=== PATIENT | male | born 1960 | race Caucasian/White ===

== ENCOUNTER 2018-10-13 00:48 | Emergency (ER) | payer OTHER ==
[~2018-10-13] VITALS: Wt 63.8 kg
[2018-10-13] MEDS ORDERED: LIDOCAINE 2% JEL.PF.APP 5 ML UROJET SYRINGE MM ONE (01:00)
[2018-10-13] MEDS ORDERED: SOD CHLORIDE 0.9% 500 ML IV STA (02:44)
[2018-10-13] MEDS ORDERED: ONDANSETRON 4 MG INJ IV STA (02:44)
[2018-10-13] MEDS ORDERED: morphine 4 MG/ML VIAL IV STA (02:44)
--- NOTE | 2018-10-13 03:13 | ERD ---
ER Documentation Chief Complaint Chief Complaint URINARY RETENTION X'S 12 HOURS HPI This is a 58-year-old gentleman with prior history of diverticulitis status post surgical repair who presents to the emergency room complaining of urinary retention. The patient states that he has a history of this. He does have history of BPH but he also takes [place] for pain. He describes some constipation and urinary retention. No low back pain or motor weakness to the lower extremities. Patient notes suprapubic abdominal discomfort that is 7 out of 10, cramping with fullness. He has not been able to urinate in the past 12 hours. ROS All systems reviewed and are negative except as per history of present illness. Medications Home Meds Active Scripts Docusate Sodium* (Colace*) 100 Mg Capsule, 100 MG PO TID PRN for CONSTIPATION, #30 CAP Prov:YANY SULLIVAN MD 10/13/18 Cephalexin* (Keflex*) 500 Mg Capsule, 500 MG PO BID for 7 Days, CAP Prov:YANY SULLIVAN MD 10/13/18 Reported Medications Hydrocodone/Acetaminophen ([place] 10-325 Tablet) 1 Each Tablet, 1 EACH PO DAILY PRN for PAIN LEVEL 6-10, TAB 10/13/18 Alprazolam* (Alprazolam*) 0.5 Mg Tablet, 0.5 MG PO BID for 30 Days, #60 10/13/18 Acyclovir* (Acyclovir*) 400 Mg Tablet, 400 MG PO BID for 30 Days 10/13/18 Acyclovir* (Acyclovir*) 800 Mg Tablet, 800 MG PO BID 10/13/18 Allergies Allergies: Coded Allergies: No Known Allergy (Unverified , 10/13/18) PMhx/Soc Medical and Surgical Hx: pt denies Medical Hx, pt denies Surgical Hx Hx Alcohol Use: No Hx Substance Use: No Hx Tobacco Use: No Smoking Status: Never smoker FmHx Family History: No diabetes Physical Exam Vitals Vital Signs Date Temp Pulse Resp B/P (MAP) Pulse Ox O2 O2 Flow FiO2 Time Delivery Rate 10/13/18 81 18 135/90 97 Room Air 04:15 (105) 10/13/18 89 12 123/88 100 Room Air 02:19 (100) 10/13/18 98.7 101 19 150/91 99 Room Air 01:00 (110) 10/13/18 98.7 88 22 146/92 99 00:52 (110) Physical Exam General: Well developed, well nourished, no acute distress Head: Normocephalic, atraumatic. Eyes: Pupils equally reactive, EOM intact ENT: Moist mucous membranes Neck: Supple, no lymphadenopathy Respiratory: Lungs clear bilaterally, no distress Cardiovascular: RRR, no murmurs, rubs, or gallops Abdominal: Soft, inconsistent exam but fullness to the suprapubic region with tenderness, no rebound or guarding : Deferred MSK: No edema, no unilateral swelling, 5/5 strength Neurologic: Alert and oriented, moving all extremities, normal speech, no focal weakness, no cerebellar signs Skin: No rash Psych: Normal mood Result Diagram: 10/13/18 0305 10/13/18 030 Results 24 hrs Laboratory Tests Test 10/13/18 03:05 White Blood Count 10.7 10^3/ul Red Blood Count 5.02 10^6/ul Hemoglobin 15.2 g/dl Hematocrit 43.9 % Mean Corpuscular Volume 87.5 fl Mean Corpuscular Hemoglobin 30.3 pg Mean Corpuscular Hemoglobin Concent 34.6 g/dl Red Cell Distribution Width 12.2 % Platelet Count 313 10^3/UL Mean Platelet Volume 10.5 fl Immature Granulocytes % 0.500 % Neutrophils % 72.8 % Lymphocytes % 15.6 % Monocytes % 10.7 % Eosinophils % 0.1 % Basophils % 0.3 % Nucleated Red Blood Cells % 0.0 /100WBC Immature Granulocytes # 0.050 10^3/ul Neutrophils # 7.8 10^3/ul Lymphocytes # 1.7 10^3/ul Monocytes # 1.1 10^3/ul Eosinophils # 0.0 10^3/ul Basophils # 0.0 10^3/ul Nucleated Red Blood Cells # 0.0 10^3/ul Sodium Level 138 mmol/L Potassium Level 3.6 mmol/L Chloride Level 104 mmol/L Carbon Dioxide Level 22 mmol/L Anion Gap 12 Blood Urea Nitrogen 13 mg/dl Creatinine 0.73 mg/dl Est Glomerular Filtrat Rate mL/min > 60 mL/min Glucose Level 101 mg/dl Calcium Level 10.3 mg/dl Current Medications Medications Dose Sig/Lindsay Start Time Status Last (Trade) Ordered Route PRN Stop Time Admin Dose Reason Admin Lidocaine 5 ml ONCE ONCE 10/13/18 DC 10/13/18 HCl MM 01:00 10/13/18 01:27 (Lidocaine 01:02 Urojet) Sodium 500 ml @ Q1H STAT 10/13/18 DC 10/13/18 Chloride 500 mls/hr IV 02:44 10/13/18 03:06 03:43 Morphine 4 mg ONCE STAT 10/13/18 DC 10/13/18 Sulfate IV 02:44 10/13/18 03:06 (morphine) 02:46 Ondansetron 4 mg ONCE STAT 10/13/18 DC 10/13/18 HCl (Zofran IV 02:44 10/13/18 03:06 Inj) 02:46 Magnesium 300 ml ONCE ONCE 10/13/18 10/13/18 Citrate PO 04:30 10/13/18 04:25 (Citroma) 04:31 Procedures/MDM EKG, MONITORS, & DIAGNOSTIC IMAGING: CT abdomen and pelvis: IMPRESSION: 1. Status post partial resection distal sigmoid colon with unremarkable anastomotic line. Heavy stool burden throughout the colon and rule out constipation. Colon otherwise unremarkable. 2. No evidence of diverticulitis or appendicitis. 3. No calcified urinary calculi or obstructive uropathy. 4. Clement catheter within the urinary bladder with nondependent air likely iatrogenic. Recommend clinical correlation. LAB INTERPRETATION: I reviewed the laboratory testing and it shows [no evidence of acute process] MEDICAL DECISION MAKING: Patient's clinical exam and history is likely consistent with urinary retention secondary to narcotic use. The patient will benefit from Clement catheter insertion. The patient's Clement catheter was inserted with only 250 cc output. The patient still has abdominal discomfort. On repeat examination the patient still has mild diffuse tenderness. The patient does describe similar feelings in the past when he had bowel obstruction. He does notes that he is passing gas. Cannot rule out partial bowel obstruction. Given the patient's risk factor, persistent pain and only [address] imaging of the abdomen pelvis will be appropriate. ER COURSE: * The patient had a Clement catheter but only had a small output prompting CT. CT shows evidence of constipation but no obstruction. Narcotic medication is likely the etiology. No signs or symptoms concerning for cauda equina or cord compression. The patient was given magnesium citrate. Clement catheter was inserted and symptoms are improved at this time. * Patient will be discharged with a leg bag. Empiric antibiotics. Clement catheter removal in 2 days. CONSULTATION: [None] DISPOSITION PLAN: The patient does not have an identifiable emergent medical condition that [facility] inpatient hospitalization at this time. The patient is deemed safe for discharge with outpatient follow-up. We discussed follow up with the patient's primary care doctor within 24 to 48 hours as needed. We also discussed return to the emergency room for worsening symptoms or worsening condition. Outpatient referral: [None required] Discharge Medications: Keflex, Colace Departure Diagnosis: Primary Impression: Generalized abdominal pain Additional Impressions: Constipation Constipation type: drug induced constipation Qualified Codes: K59.03 - Drug induced constipation Retention of urine Condition: Stable YANY SULLIVAN MD October 13, 2018 03:13
[2018-10-13 04:15] VITALS: BP 135/90; PULSE 81; RESP 18
[2018-10-13] MEDS ORDERED: ACYC400T2 PO (04:18)
[2018-10-13] MEDS ORDERED: HYDR-3980 PO (04:18)
[2018-10-13] MEDS ORDERED: ALPR0.5T6 PO (04:18)
[2018-10-13] MEDS ORDERED: ACYC800T PO (04:18)
[2018-10-13] MEDS ORDERED: CEPH-443 PO (04:21)
[2018-10-13] MEDS ORDERED: DOCU-144 PO (04:21)
[2018-10-13] MEDS ORDERED: MAGNESIUM CITRATE 300 ML BTL PO ONE (04:30)
== END 2018-10-13 04:44 | disposition home or self-care (01) ==
LOC: E/R 00:48
DX: R10.84 Generalized abdominal pain (principal); K59.03 Drug induced constipation
CPT/HCPCS: 36415; 51702; 74176; 80048; 85025; 96374; 96375; J2270; J2405; J7040; Z7502; Z7610

== ENCOUNTER 2018-10-15 10:42 | Emergency (ER) | payer OTHER ==
[~2018-10-15] VITALS: Ht 175.3 cm; Wt 63.5 kg
[~2018-10-15 10:42] MED LIST: ACYC400T2 PO; ACYC800T PO; ALPR0.5T6 PO; CEPH-443 PO; DOCU-144 PO; HYDR-3980 PO
[2018-10-15 10:46] VITALS: Ht 175.3 cm; Wt 63.5 kg
--- NOTE | 2018-10-15 11:59 | ERD ---
ER Documentation Chief Complaint Chief Complaint marte removal HPI 58-year-old male, presents the emergency department for Marte catheter removal placed 2 days ago secondary to acute postsurgical urinary retention. The patient refers feeling good, no abdominal pain, no fever, no chills, no dysuria. No hematuria. ROS All systems reviewed and are negative except as per history of present illness. Medications Home Meds Active Scripts Docusate Sodium* (Colace*) 100 Mg Capsule, 100 MG PO TID PRN for CONSTIPATION, #30 CAP Prov:YANY SULLIVAN MD 10/13/18 Cephalexin* (Keflex*) 500 Mg Capsule, 500 MG PO BID for 7 Days, CAP Prov:YANY SULLIVAN MD 10/13/18 Reported Medications Hydrocodone/Acetaminophen ([place] 10-325 Tablet) 1 Each Tablet, 1 EACH PO DAILY PRN for PAIN LEVEL 6-10, TAB 10/13/18 Alprazolam* (Alprazolam*) 0.5 Mg Tablet, 0.5 MG PO BID for 30 Days, #60 10/13/18 Acyclovir* (Acyclovir*) 400 Mg Tablet, 400 MG PO BID for 30 Days 10/13/18 Acyclovir* (Acyclovir*) 800 Mg Tablet, 800 MG PO BID 10/13/18 Allergies Allergies: Coded Allergies: No Known Allergy (Unverified , 10/13/18) PMhx/Soc Medical and Surgical Hx: pt denies Medical Hx, pt denies Surgical Hx History of Surgery: Yes (Abdominal surgery for diverticulitis) Hx Alcohol Use: No Hx Substance Use: No Hx Tobacco Use: No Smoking Status: Never smoker FmHx Family History: No diabetes, No coronary disease Physical Exam Vitals Vital Signs Date Temp Pulse Resp B/P (MAP) Pulse Ox O2 O2 Flow FiO2 Time Delivery Rate 10/15/18 97.9 81 18 141/93 98 10:46 (109) Physical Exam Const: No acute distress Head: Atraumatic Eyes: Normal Conjunctiva ENT: Normal External Ears, Nose and Mouth. Neck: Full range of motion. No meningismus. Resp: Clear to auscultation bilaterally Cardio: Regular rate and rhythm, no murmurs Abd: Soft, non tender, non distended. Normal bowel sounds Skin: No petechiae or rashes Back: No midline or flank tenderness Ext: No cyanosis, or edema Neur: Awake and alert Psych: Normal Mood and Affect Procedures/MDM Vital signs stable. Differential diagnosis considered include acute urinary retention, side effects of medication, BPH, neurogenic bladder, UTI, kidney stone. During the ED course the patient remained stable, no new complaints. The Marte catheter was removed without complications followed by a spontaneous diuresis. Clinical impression discussed with the patient who agrees with management. The patient is stable to be discharged home. Follow up with the primary care provider in the next 48h. If symptoms persist, worsen or new symptoms develop, then patient should return to the ED immediately. Instructions explained and given directly by me to the patient with acknowledgment and demonstrated understanding. Disclaimer: Inadvertent spelling and grammatical errors are likely due to EHR/dictation software use and do not reflect on the overall quality of patient care. Also, please note that the electronic time recorded on this note does not necessarily reflect the actual time of the patient encounter. Departure Diagnosis: Primary Impression: Encounter for urinary catheter Condition: Stable Patient Instructions: Marte Catheter Removal Additional Instructions: Thank you very much for allowing us to participate in your care. Your health and safety is our top priority at [facility]. The evaluation in the emergency department has been done to rule out an acute emergency, therefore, chronic conditions like malignancy or other diseases have not been evaluated; therefore, you need to follow up with a primary care provider in the next 48h. If symptoms persist, worsen or new symptoms develop, then patient should return to the ED immediately. Call your primary care doctor TOMORROW for an appointment during the next 2-4 days and bring all the information provided. Have prescriptions filled and follow precisely the directions on the label. If the symptoms get worse and your provider is unavailable, return to the Emergency Department immediately. SHRAVAN OSBORN MD October 15, 2018 11:59
== END 2018-10-15 12:40 | disposition home or self-care (01) ==
LOC: FTE 10:42
DX: Z46.6 Encounter for fitting and adjustment of urinary device (principal)
CPT/HCPCS: 99283